=== PATIENT | male | born 1950 | race African-American/Black ===

== ENCOUNTER 2020-03-29 12:43 | Inpatient (IN) | payer MEDICARE, OTHER ==
[~2020-03-29] VITALS: Ht 180.3 cm; Wt 82.5 kg
[2020-03-29] MEDS ORDERED: Meclizine 25mg tab ORAL ONE (13:15)
--- NOTE | 2020-03-29 13:15 | NUR ---
ED Nurse Note: Patient walked in to ER due to dizziness x 45 min ago and nausea / vomiting since 15 min ago. Patient walked with steady gait, has even non labored breathing, AAO x4, VSS at this time, skin is warm to touch.
--- NOTE | 2020-03-29 13:49 | Diagnostic Imaging Report ---
Indications: Dizziness and vertigo Technique: Spiral acquisitions obtained through the brain. Angled axial and coronal 5 x 5 mm slices were reconstructed. Total dose length product 1098 mGycm. CTDI vol(s) 53 mGy. Dose reduction achieved using automated exposure control Comparison: None. Findings: No acute intracranial hemorrhage or edema. No mass effect nor midline shift. Normal hernandez-white differentiation. There is mild age-related enlargement of the ventricles and extra-axial CSF spaces, as well as minimal periventricular deep white matter low-attenuation, consistent with chronic microvascular ischemic change. Tiny old lacunar infarct is seen in the genu of the left internal capsule. The calvarium is intact. The mastoids are clear. Visualized orbits and sinuses are unremarkable. Impression: Chronic and age-related changes. 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
[2020-03-29] MEDS ORDERED: Albuterol ud Inhalation HHN ONE (14:00)
[2020-03-29] MEDS ORDERED: Ipratropium 0.02% Inh Soln 2.5ml UD HHN ONE (14:00)
[2020-03-29 14:22] LABS: BASOPHILS % (AUTO) 1.7 % (0.0-2.0); EOSINOPHILS % (AUTO) 5.6 % (0.0-3.0); HEMATOCRIT 43.5 % (42.0-52.0); HEMOGLOBIN 13.6 G/DL (14.2-18.0); LYMPHOCYTES % (AUTO) 39.9 % (20.0-45.0); MEAN CORPUSCULAR VOLUME 87 FL (80-99); MONOCYTES % (AUTO) 6.7 % (1.0-10.0); NEUTROPHILS % (AUTO) 46.1 % (45.0-75.0); PLATELET COUNT 212 K/UL (150-450); RED CELL DISTRIBUTION WIDTH 15.5 % (11.6-14.8); WHITE BLOOD COUNT 10.2 K/UL (4.8-10.8)
[2020-03-29] MEDS ORDERED: LORazepam Inj 2mg/ml 1ml IV ONE ×3 (14:30→16:30)
[2020-03-29 14:34] LABS: INR 1.7 (0.9-1.1)
[2020-03-29 14:39] LABS: ALANINE AMINOTRANSFERASE 21 U/L (12-78); ALBUMIN/GLOBULIN RATIO 1.2 (1.0-2.7); ALKALINE PHOSPHATASE 94 U/L (46-116); ASPARTATE AMINO TRANSFERASE 22 U/L (15-37); BILIRUBIN,TOTAL 0.4 MG/DL (0.2-1.0); BLOOD UREA NITROGEN 14 mg/dL (7-18); CALCIUM 8.9 MG/DL (8.5-10.1); CARBON DIOXIDE 28 MMOL/L (21-32); CHLORIDE 99 MMOL/L (98-107); CREATININE 1.4 MG/DL (0.55-1.30); POTASSIUM 4.4 MMOL/L (3.5-5.1); SODIUM 136 MMOL/L (136-145)
[2020-03-29 15:00] VITALS: BP 179/80
--- NOTE | 2020-03-29 15:02 | Emergency Room Report ---
History of Present Illness General Chief Complaint: Dizziness Source: Patient Present Illness HPI The patient states about an hour and 45 minutes prior to arrival here at the emergency department he was sitting in the couch when he suddenly developed lightheadedness, a spinning sensation and difficulty with balance. He denies headache. He has had nausea and did dry heaves but denies actual vomiting. He denies recent trauma. Denies fever or chills. He denies cough or congestion. Allergies: Coded Allergies: No Known Allergies (Unverified , 03/29/20) COVID-19 Screening Contact w/high risk pt: No Experienced COVID-19 symptoms?: No COVID-19 Testing performed DIRECTOR OF CASINO: No Patient History Past Medical History: see triage record, DM, HTN, FL, CAD Past Surgical History: CABG Social History: Reports: smoking; Denies: alcohol use, drug use Reviewed Nursing Documentation: PMH: Agreed; PSxH: Agreed Nursing Documentation-PMH Past Medical History: No History, Except For Hx Cardiac Problems: Yes Hx Hypertension: Yes Hx Diabetes: Yes Review of Systems All Other Systems: negative except mentioned in HPI Physical Exam Vital Signs Date Time Temp Pulse Resp B/P (MAP) Pulse Ox O2 Delivery O2 Flow Rate FiO2 03/29/20 12:55 98.2 61 18 179/80 (113) 97 Room Air Sp02 EP Interpretation: reviewed, normal General Appearance: no apparent distress, alert, GCS 15, non-toxic Head: normocephalic, atraumatic Eyes: bilateral eye normal inspection, bilateral eye PERRL ENT: hearing grossly normal, normal pharynx, no angioedema, normal voice Neck: full range of motion, supple/symm/no masses Respiratory: chest non-tender, no respiratory distress, no retraction, no accessory muscle use, speaking full sentences, wheezing, expiration Cardiovascular #1: regular rate, rhythm, no edema Gastrointestinal: normal bowel sounds, non tender, soft, non-distended, no guarding, no rebound Rectal: deferred Musculoskeletal: back normal, normal range of motion, non-tender Neurologic: alert, motor strength/tone normal, oriented x3, sensory intact, responsive, speech normal Psychiatric: judgement/insight normal, memory normal, mood/affect normal, no suicidal/homicidal ideation Skin: normal color Medical Decision Making Diagnostic Impression: Primary Impression: Vertigo Additional Impression: Bronchospasm with bronchitis, acute ER Course This patient presented with sudden onset vertigo. There were red flags in his history for central vertigo to include a sudden onset and ataxic gait. He does have nausea but has not had vomiting. Given my concern for central vertigo, I first obtained a CT head which showed no acute finding. I then obtained an MRI brain for concern of posterior circulation CVA. The MRI showed no evidence of posterior circulation CVA which is very reassuring for peripheral vertigo. However, patient also was found to have wheezing on expiration. Patient is not on any type of inhalers at home and has never been diagnosed with COPD. I suspect he has undiagnosed COPD. The patient's lung exam was significant and when I inquired if he felt short of breath, he then stated that he did. Patient is a current smoker and likely has undiagnosed COPD. The patient was given albuterol and Atrovent nebulizer treatments and oral steroids and admitted for further evaluation and treatment. This patient was evaluated in the context of the global COVID-19 pandemic, which necessitated consideration that the patient might be at risk for infection with the [id number] virus that causes COVID-19. Institutional protocols and algorithms that pertain to the evaluation of patients at risk for COVID-19 and the state of rapid change based on information released by multiple regulatory bodies including the CDC and federal and state organizations. These policies and algorithms were followed during the patient's care in the ED. Laboratory Tests Test 03/29/20 13:54 White Blood Count 10.2 K/UL (4.8-10.8) Red Blood Count 5.00 M/UL (4.70-6.10) Hemoglobin 13.6 G/DL (14.2-18.0) L Hematocrit 43.5 % (42.0-52.0) Mean Corpuscular Volume 87 FL (80-99) Mean Corpuscular Hemoglobin 27.1 PG (27.0-31.0) Mean Corpuscular Hemoglobin Concent 31.2 G/DL (32.0-36.0) L Red Cell Distribution Width 15.5 % (11.6-14.8) H Platelet Count 212 K/UL (150-450) Mean Platelet Volume 8.5 FL (6.5-10.1) Neutrophils (%) (Auto) 46.1 % (45.0-75.0) Lymphocytes (%) (Auto) 39.9 % (20.0-45.0) Monocytes (%) (Auto) 6.7 % (1.0-10.0) Eosinophils (%) (Auto) 5.6 % (0.0-3.0) H Basophils (%) (Auto) 1.7 % (0.0-2.0) Prothrombin Time 17.9 SEC (9.30-11.50) H Prothrombin Time INR 1.7 (0.9-1.1) H Activated Partial Thromboplast Time 57 SEC (23-33) H Sodium Level 136 MMOL/L (136-145) Potassium Level 4.4 MMOL/L (3.5-5.1) Chloride Level 99 MMOL/L (98-107) Carbon Dioxide Level 28 MMOL/L (21-32) Blood Urea Nitrogen 14 mg/dL (7-18) Creatinine 1.4 MG/DL (0.55-1.30) H Estimated Glomerular Filtration Rate > 60 mL/min (>60) Glucose Level 142 MG/DL (74-106) H Calcium Level 8.9 MG/DL (8.5-10.1) Total Bilirubin 0.4 MG/DL (0.2-1.0) Aspartate Amino Transferase (AST) 22 U/L (15-37) Alanine Aminotransferase (ALT) 21 U/L (12-78) Alkaline Phosphatase 94 U/L (46-116) Troponin I 0.000 ng/mL (0.000-0.056) Total Protein 7.3 G/DL (6.4-8.2) Albumin 4.0 G/DL (3.4-5.0) Globulin 3.3 g/dL Albumin/Globulin Ratio 1.2 (1.0-2.7) Lipase 165 U/L (73-393) EKG Diagnostic Results Rate: normal Rhythm: NSR ST Segments: no acute changes Rhythm Strip Diag. Results EP Interpretation: yes Rate: 60's Rhythm: NSR, no PVC's, no ectopy CT/MRI/US Diagnostic Results CT/MRI/US Diagnostic Results : Imaging Test Ordered: CT head, MRI brain Impression Impression: Chronic and age-related changes. 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 See official report in electronic medical record. Last Vital Signs Date Time Temp Pulse Resp B/P (MAP) Pulse Ox O2 Delivery O2 Flow Rate FiO2 03/29/20 12:55 98.2 61 18 179/80 (113) 97 Room Air Disposition: ADMITTED INPATIENT Condition: Serious Scripts Rivaroxaban (XARELTO*) 10 Mg Tablet 20 MG ORAL DAILY for 30 Days, #30 TAB Prov: Brian Abarca MD 03/30/20 Nateglinide (Starlix) 120 Mg Tablet 120 MG ORAL TIAC for 30 Days, #90 TAB Prov: Brian Abarca MD 03/30/20 Amlodipine Besylate (Norvasc) 10 Mg Tablet 10 MG ORAL DAILY for 30 Days, #30 TAB Prov: Brian Abarca MD 03/30/20 Referrals: NOT CHOSEN DAVID/,REFERRING (PCP) Luzmaria Kimble DO Mar 29, 2020 15:02
--- NOTE | 2020-03-29 15:03 | NUR ---
ED Nurse Note: Per ARLEY, she is requesting to give patient Ativan so he can go to radiology.
--- NOTE | 2020-03-29 15:35 | NUR ---
ED Nurse Note: RT at bed side
--- NOTE | 2020-03-29 15:52 | Diagnostic Imaging Report ---
Indication: Shortness of breath Technique: One view of the chest Comparison: None Findings: The heart is upper limits normal in size. There is evidence of prior CABG. The lungs and pleural spaces are clear. Impression: No acute process
[2020-03-29 16:56] LABS: APPEARANCE,URINE CLEAR; BILIRUBIN, URINE NEGATIVE (NEGATIVE); COLOR,URINE PALE YELLOW; GLUCOSE, URINE (UA) NEGATIVE (NEGATIVE); KETONES,URINE NEGATIVE (NEGATIVE); LEUKOCYTE ESTERASE ,URINE NEGATIVE (NEGATIVE); NITRITE,URINE NEGATIVE (NEGATIVE); PH,URINE 7 (4.5-8.0); PROTEIN,URINE 2+ (NEGATIVE); UROBILINOGEN,URINE NORMAL MG/DL (0.0-1.0)
--- NOTE | 2020-03-29 17:10 | NUR ---
ED Nurse Note: Patient wa taken to MRI via [facility]
--- NOTE | 2020-03-29 17:45 | NUR ---
ED Nurse Note: Patient is back, NAD noted
[2020-03-29] MEDS ORDERED: METFORMIN HCL500 M1 ORAL (18:07)
[2020-03-29] MEDS ORDERED: FUROSEMIDE20 M1 ORAL (18:07)
--- NOTE | 2020-03-29 18:18 | Diagnostic Imaging Report ---
EXAM: MR Head Without Intravenous Contrast CLINICAL HISTORY: Dizziness. TECHNIQUE: Magnetic resonance images of the head/brain without intravenous contrast in multiple planes. COMPARISON: 03/29/2020. FINDINGS: Brain: Evaluation of axial diffusion-weighted sequences reveals no foci of increased signal to suggest acute cerebrovascular event. Small vessel disease of aging. No abnormal extra-axial collection. No hemorrhage. Midline shift: No midline shift or mass-effect. Midline anatomy is unremarkable. Ventricles: There is prominence of the ventricular system, cortical sulci, basilar cisterns, compatible with age related atrophy. Bones/joints: 7th and 8th cranial nerves are unremarkable. Sinuses: Unremarkable as visualized. No acute sinusitis. Mastoid air cells: Unremarkable as visualized. No mastoid effusion. Orbits: Unremarkable as visualized. Sella: So-called empty sella. IMPRESSION: 1. Age-related atrophy and small vessel disease of aging. 2. No acute intracranial pathology. 3. Diffusion-weighted sequences are unremarkable. 4. 7th and 8th cranial nerves are unremarkable.
--- NOTE | 2020-03-29 19:11 | NUR ---
HAND-OFF: Report given to BARRY Napier.
--- NOTE | 2020-03-29 19:18 | History & Physical ---
History and Physical History & Physicial Brian Abarca MD Mar 29, 2020 19:18
[2020-03-29 19:37] VITALS: BP 145/90
--- NOTE | 2020-03-29 19:40 | NUR ---
NURSE NOTES: Receive a report from BARRY Stephenson from ED.
[2020-03-29 19:43] VITALS: BP 158/84
--- NOTE | 2020-03-29 19:47 | NUR ---
ED Nurse Note: REPORT GIVEN TO MACI BEASLEY RN. ENDORSED PT. CARE
--- NOTE | 2020-03-29 19:55 | NUR ---
NURSE NOTES: Pt admitted from ER via wheelchair. Awake and alert. No acute distress noted. No dizziness/ no nausea noted. Denies any pain. Ambulatory. Skin intact. No wheezing noted at this time. Done checking belonging list. Given room orientation. Call light within reach. Will continue to monitor.
[2020-03-29 20:00] VITALS: BP 149/87
[2020-03-29] MEDS ORDERED: Albuterol/Ipratropium 3ml neb HHN PRN (20:15)
[2020-03-29] MEDS ORDERED: Promethazine/Codeine 5ml UD ORAL PRN (20:15)
[2020-03-29] MEDS ORDERED: Nitroglycerin Subl 0.4mg tab SL PRN (20:15)
--- NOTE | 2020-03-29 20:30 | NUR ---
NURSE NOTES: Pt did not bring home medication and does not remember all medication name- especially anti-HTN medication. Got advice from pharmacy to follow up with pt's home pharmacy.
[2020-03-29] MEDS ORDERED: Zolpidem 5mg tab ORAL PRN (20:45)
--- NOTE | 2020-03-29 20:45 | NUR ---
NURSE NOTES: Pt's home pharmacy got closed at this time and could not get information. Made aware Dr. Abarca for pt's home medication. Receive order for home medication-resume home medication and continue the rest of home medication after detailed information from pt's pharmacy. Will continue to follow up. Admission orders got received. Will continue to monitor.
[2020-03-29] MEDS ORDERED: Heparin 5000 units/ml inj SUBQ SCH (21:00)
[2020-03-29] MEDS: Theophylline ER 100mg ORAL SCH (21:06)
[2020-03-29] MEDS: NovoLOG Insulin Flexpen SUBQ SCH (21:07)
--- NOTE | 2020-03-29 22:00 | NUR ---
NURSE NOTES: Seen by Dr. Abarca. Confirm sleeping pills for insomnia with him. Will continue to monitor.
[2020-03-29] MEDS: Solu-MEDROL 125mg Inj IVPB SCH (23:40)
[2020-03-30] VITALS: BP 162/83
[2020-03-30 04:30] VITALS: BP 158/87
--- NOTE | 2020-03-30 05:00 | NUR ---
NURSE NOTES: No SOB but noted mild wheezing. Spo2: 93% in RA. Call RT for prn breathing treatment and I/S instruction. Pt is aware to collect sputum. Will continue to monitor.
[2020-03-30] MEDS: Solu-MEDROL 125mg Inj IVPB SCH ×2 (06:12→11:36)
[2020-03-30] MEDS: NovoLOG Insulin Flexpen SUBQ SCH ×2 (06:13→11:39)
[2020-03-30 06:38] LABS: BASOPHILS % (AUTO) 0.6 % (0.0-2.0); EOSINOPHILS % (AUTO) 0.1 % (0.0-3.0); HEMATOCRIT 40.7 % (42.0-52.0); HEMOGLOBIN 13.3 G/DL (14.2-18.0); LYMPHOCYTES % (AUTO) 21.9 % (20.0-45.0); MEAN CORPUSCULAR VOLUME 84 FL (80-99); MONOCYTES % (AUTO) 1.4 % (1.0-10.0); PLATELET COUNT 216 K/UL (150-450); RED BLOOD COUNT 4.82 M/UL (4.70-6.10); RED CELL DISTRIBUTION WIDTH 15.4 % (11.6-14.8)
--- NOTE | 2020-03-30 06:41 | NUR ---
NURSE HAND-OFF: Important Events on Shift: admission/ Breathing treatment x1 Patient Status: stable Diet: CCHO Medium Pending Orders: follow-up [facility] pharmacy for home medication:[phone] Pending Results/Labs:CBC, CMP, Sputum C/S Pending MD notification:[] Latest Vital Signs: Temperature 98.2 , Pulse 68 , B/P 158 /87 , Respiratory Rate 18 , O2 SAT 93 , Room Air, O2 Flow Rate . Vital Sign Comment: [] Latest Alvarez Fall Score: 35 Fall Risk: Medium Risk Safety Measures: Call light Within Reach, Bed Alarm , Side Rails Side Rails x2, Bed position Low and Locked. Fall Precautions: Door Sign Patient Fall Education
[2020-03-30 06:50] LABS: ALBUMIN 3.3 G/DL (3.4-5.0); ALBUMIN/GLOBULIN RATIO 0.9 (1.0-2.7); BILIRUBIN,TOTAL 0.4 MG/DL (0.2-1.0); CALCIUM 8.9 MG/DL (8.5-10.1); CREATININE 1.5 MG/DL (0.55-1.30); POTASSIUM 4.6 MMOL/L (3.5-5.1)
--- NOTE | 2020-03-30 07:20 | NUR ---
HAND-OFF: Report given to BARRY Hemphill. Round is done.
--- NOTE | 2020-03-30 07:25 | NUR ---
NURSE NOTES: Patient is sitting up at the edge of the bed eating breakfast. Stable. Denies pain or SOB. Plan of care discussed with patient. Message left for pharmacy regarding home medications. Patient instructed to use call light for assistance, verbalized understanding. All safety measures provided. All needs met at this time. Bed is in locked and lowest position and call light within reach. Will continue to monitor.
[2020-03-30 08:00] VITALS: BP 157/77
[2020-03-30] MEDS: Theophylline ER 100mg ORAL SCH (08:27)
[2020-03-30] MEDS ORDERED: Xarelto 10mg tab ORAL SCH (09:00)
[2020-03-30] MEDS ORDERED: metFORMIN 500mg tab ORAL SCH (09:00)
[2020-03-30 11:56] VITALS: BP 168/92
[2020-03-30] MEDS ORDERED: Solu-MEDROL 125mg Inj IVPB SCH (12:29)
--- NOTE | 2020-03-30 12:37 | Consultation ---
History of Present Illness General Date patient seen: Mar 30, 2020 Chief Complaint: Dizziness Present Illness HPI 70 year old male with hx of CABG, DM, HTN, CO, CAD, CHF on lasix, presented to ER with CC of lightheadedness, a spinning sensation and difficulty with balance. He denies headache. He has had nausea and did dry heaves but denies actual vomiting. He was complaining of dyspnea and cough as well. He is a current smoker. He is admitted for further management. Allergies: Coded Allergies: No Known Allergies (Unverified , 03/29/20) Medication History Scheduled Furosemide* (Lasix*), Unknown Dose ORAL DAILY, (Reported) Metformin Hcl* (Metformin Hcl*), Unknown Dose ORAL ONCE, (Reported) Patient History Healthcare decision maker Resuscitation status Advanced Directive on File Past Medical/Surgical History Past Medical/Surgical History: (1) COPD (chronic obstructive pulmonary disease) (2) History of hypertension (3) History of diabetes mellitus (4) CHF (congestive heart failure) (5) Hx of CABG (6) S/P angioplasty with stent Review of Systems Constitutional: Reports: malaise, weakness Respiratory: Reports: cough All Other Systems: negative except mentioned in HPI Physical Exam General Appearance: WD/WN, no apparent distress Lines, tubes and drains: peripheral HEENT: normocephalic, atraumatic Neck: non-tender, normal alignment Respiratory/Chest: chest wall non-tender, lungs clear Breasts: no masses Cardiovascular/Chest: normal peripheral pulses Abdomen: normal bowel sounds, non tender Genitourinary/Rectal: normal genital exam Extremities: normal range of motion Skin Exam: normal pigmentation Neurologic: conference specialist II-XII grossly normal Last 24 Hour Vital Signs Date Time Temp Pulse Resp B/P (MAP) Pulse Ox O2 Delivery O2 Flow Rate FiO2 03/30/20 11:56 97.8 76 20 168/92 (117) 95 03/30/20 08:54 Room Air 03/30/20 08:00 97.7 81 20 157/77 (103) 93 03/30/20 05:24 75 18 97 Room Air 21 68 18 93 03/30/20 05:23 68 18 93 Room Air 21 03/30/20 04:30 98.2 73 20 158/87 (110) 93 03/30/20 00:00 98.2 67 20 162/83 (109) 93 03/29/20 23:41 162/83 03/29/20 23:27 63 16 92 21 03/29/20 23:27 68 18 92 21 03/29/20 21:00 Room Air 03/29/20 20:30 Room Air 03/29/20 20:00 98.2 69 20 149/87 (107) 95 03/29/20 19:43 98.0 78 20 158/84 94 Room Air 03/29/20 19:43 98.0 78 20 158/84 94 Room Air 03/29/20 17:03 67 20 155/95 95 03/29/20 16:33 67 20 165/95 95 03/29/20 15:33 88 22 178/88 95 03/29/20 15:33 88 22 178/88 95 03/29/20 15:32 88 22 178/88 95 03/29/20 15:32 65 24 100 Room Air 21 67 29 94 03/29/20 15:00 61 18 Room Air 03/29/20 15:00 98.2 67 18 179/80 97 Room Air 03/29/20 12:55 98.2 61 18 179/80 (113) 97 Room Air Intake and Output 03/29/20 03/30/20 19:00 07:00 Intake Total 150 ml Balance 150 ml Intake Oral 150 ml # Voids 1 2 Laboratory Tests Test 03/29/20 13:54 03/29/20 15:38 03/29/20 21:00 03/30/20 04:00 White Blood Count 10.2 K/UL (4.8-10.8) Red Blood Count 5.00 M/UL (4.70-6.10) Hemoglobin 13.6 G/DL (14.2-18.0) L Hematocrit 43.5 % (42.0-52.0) Mean Corpuscular Volume 87 FL (80-99) Mean Corpuscular Hemoglobin 27.1 PG (27.0-31.0) Mean Corpuscular Hemoglobin Concent 31.2 G/DL (32.0-36.0) L Red Cell Distribution Width 15.5 % (11.6-14.8) H Platelet Count 212 K/UL (150-450) Mean Platelet Volume 8.5 FL (6.5-10.1) Neutrophils (%) (Auto) 46.1 % (45.0-75.0) Lymphocytes (%) (Auto) 39.9 % (20.0-45.0) Monocytes (%) (Auto) 6.7 % (1.0-10.0) Eosinophils (%) (Auto) 5.6 % (0.0-3.0) H Basophils (%) (Auto) 1.7 % (0.0-2.0) Prothrombin Time 17.9 SEC (9.30-11.50) H Prothromb Time International Ratio 1.7 (0.9-1.1) H Activated Partial Thromboplast Time 57 SEC (23-33) H Sodium Level 136 MMOL/L (136-145) 136 MMOL/L (136-145) Potassium Level 4.4 MMOL/L (3.5-5.1) 4.6 MMOL/L (3.5-5.1) Chloride Level 99 MMOL/L (98-107) 100 MMOL/L (98-107) Carbon Dioxide Level 28 MMOL/L (21-32) 28 MMOL/L (21-32) Blood Urea Nitrogen 14 mg/dL (7-18) 16 mg/dL (7-18) Creatinine 1.4 MG/DL (0.55-1.30) H 1.5 MG/DL (0.55-1.30) H Estimat Glomerular Filtration Rate > 60 mL/min (>60) 56.2 mL/min (>60) Glucose Level 142 MG/DL (74-106) H 236 MG/DL (74-106) H Calcium Level 8.9 MG/DL (8.5-10.1) 8.9 MG/DL (8.5-10.1) Total Bilirubin 0.4 MG/DL (0.2-1.0) 0.4 MG/DL (0.2-1.0) Aspartate Amino Transf (AST/SGOT) 22 U/L (15-37) 16 U/L (15-37) Alanine Aminotransferase (ALT/SGPT) 21 U/L (12-78) 17 U/L (12-78) Alkaline Phosphatase 94 U/L (46-116) 88 U/L (46-116) Troponin I 0.000 ng/mL (0.000-0.056) Total Protein 7.3 G/DL (6.4-8.2) 7.0 G/DL (6.4-8.2) Albumin 4.0 G/DL (3.4-5.0) 3.3 G/DL (3.4-5.0) L Globulin 3.3 g/dL 3.7 g/dL Albumin/Globulin Ratio 1.2 (1.0-2.7) 0.9 (1.0-2.7) L Lipase 165 U/L (73-393) Serum Alcohol < 3 mg/dL Urine Color Pale yellow Urine Appearance Clear Urine pH 7 (4.5-8.0) Urine Specific [place] 1.005 (1.005-1.035) Urine Protein 2+ (NEGATIVE) H Urine Glucose (UA) Negative (NEGATIVE) Urine Ketones Negative (NEGATIVE) Urine Blood 1+ (NEGATIVE) H Urine Nitrite Negative (NEGATIVE) Urine Bilirubin Negative (NEGATIVE) Urine Urobilinogen Normal MG/DL (0.0-1.0) Urine Leukocyte Esterase Negative (NEGATIVE) Urine RBC 5-10 /HPF (0 - 0) H Urine WBC 0 /HPF (0 - 0) Urine Squamous Epithelial Cells None /LPF (NONE/OCC) Urine Bacteria Few /HPF (NONE) POC Whole Blood Glucose 237 MG/DL (74-106) H Anion Gap 8 mmol/L (5-15) Test 03/30/20 04:59 03/30/20 05:00 POC Whole Blood Glucose 241 MG/DL (74-106) H White Blood Count 10.0 K/UL (4.8-10.8) Red Blood Count 4.82 M/UL (4.70-6.10) Hemoglobin 13.3 G/DL (14.2-18.0) L Hematocrit 40.7 % (42.0-52.0) L Mean Corpuscular Volume 84 FL (80-99) Mean Corpuscular Hemoglobin 27.6 PG (27.0-31.0) Mean Corpuscular Hemoglobin Concent 32.7 G/DL (32.0-36.0) Red Cell Distribution Width 15.4 % (11.6-14.8) H Platelet Count 216 K/UL (150-450) Mean Platelet Volume 8.7 FL (6.5-10.1) Neutrophils (%) (Auto) 76.0 % (45.0-75.0) H Lymphocytes (%) (Auto) 21.9 % (20.0-45.0) Monocytes (%) (Auto) 1.4 % (1.0-10.0) Eosinophils (%) (Auto) 0.1 % (0.0-3.0) Basophils (%) (Auto) 0.6 % (0.0-2.0) Microbiology Date/Time Source Procedure Growth Status 03/29/20 14:24 Nasopharynx SARS-CoV-2 RdRp Gene Assay - Final Complete Height (Feet): 5 Height (Inches): 11.00 Weight (Pounds): 180 Medications Current Medications Medications (Trade) Dose Ordered Sig/Nuria Route PRN Reason Start Time Stop Time Status Last Admin Dose Admin Acetaminophen (Tylenol) 650 mg Q4H PRN ORAL fever 03/29/20 20:15 04/28/20 20:14 Albuterol/ Ipratropium (Albuterol/ Ipratropium) 3 ml EVERY 4 HOURS PRN HHN dyspnea 03/29/20 20:15 04/03/20 20:14 03/30/20 05:17 Clonidine HCl (Catapres Tab) 0.1 mg EVERY 4 HOURS PRN ORAL sbp more than 160 03/29/20 20:15 06/27/20 20:14 03/29/20 23:41 Dextrose (Dextrose 50%) 25 ml Q30M PRN IV Hypoglycemia 03/29/20 20:15 06/27/20 20:14 Dextrose (Dextrose 50%) 50 ml Q30MIN PRN IV Hypoglycemia 03/29/20 20:15 06/27/20 20:14 Furosemide (Lasix) 20 mg DAILY ORAL 03/30/20 09:00 04/29/20 08:59 03/30/20 08:27 Insulin Aspart (NovoLOG) BEFORE MEALS AND HS SUBQ 03/29/20 21:00 06/27/20 20:59 03/30/20 11:39 Metformin HCl (Glucophage) 500 mg DAILY ORAL 03/30/20 09:00 04/29/20 08:59 03/30/20 08:27 Methylprednisolone Sodium Succinate (Solu-MEDROL) 60 mg EVERY 6 HOURS IVPB 03/30/20 00:00 06/28/20 00:00 03/30/20 11:36 Nitroglycerin (Ntg) 0.4 mg Q5M X 3 DOSES PRN SL Prn Chest Pain 03/29/20 20:15 04/28/20 20:14 Ondansetron HCl (Zofran) 4 mg Q6H PRN IVP Nausea & Vomiting 03/29/20 20:15 04/28/20 20:14 Promethazine HCl/ Codeine (Phenergan with Codeine) 5 ml EVERY 6 HOURS PRN ORAL cough 03/29/20 20:15 04/28/20 20:14 Rivaroxaban (Xarelto) 20 mg DAILY ORAL 03/30/20 09:00 06/28/20 08:59 03/30/20 08:27 Theophylline (Bijan-Dur) 100 mg EVERY 12 HOURS ORAL 03/29/20 21:00 06/27/20 20:59 03/30/20 08:27 Zolpidem Tartrate (Ambien) 10 mg HSPRN PRN ORAL Insomnia 03/29/20 20:45 04/05/20 20:44 03/29/20 22:33 Assessment/Plan Problem List: (1) Bronchospasm with bronchitis, acute ICD Codes: J20.9 - Acute bronchitis, unspecified SNOMED: 43742874 (2) Vertigo ICD Codes: R42 - Dizziness and giddiness SNOMED: 949678734 (3) COPD (chronic obstructive pulmonary disease) ICD Codes: J44.9 - Chronic obstructive pulmonary disease, unspecified SNOMED: 49672914 (4) History of diabetes mellitus ICD Codes: Z86.39 - Personal history of other endocrine, nutritional and metabolic disease SNOMED: 860710024 (5) History of hypertension ICD Codes: Z86.79 - Personal history of other diseases of the circulatory system SNOMED: 468253815 (6) Hx of CABG ICD Codes: Z95.1 - Presence of aortocoronary bypass graft SNOMED: 012966228, 495719559 (7) S/P angioplasty with stent ICD Codes: Z95.820 - Peripheral vascular angioplasty status with implants and grafts SNOMED: 261522451, 637876567 Assessment/Plan: respiratory treatment titrate fio2 to sat of 92% MRI of brain reviewed, lightheadedness sliding scale diabetic diet echocardiogram hold metformin b/o renal insufficiency Jony Leger MD Mar 30, 2020 12:37
[2020-03-30] MEDS ORDERED: Albuterol/Ipratropium 3ml neb HHN PRN (12:45)
[2020-03-30 12:50] LABS: CREATINE KINASE 137 U/L (26-308)
--- NOTE | 2020-03-30 13:37 | Consultation ---
Consult Note Consult Note Asked to evaluate the patient at the request of Dr. Abarca for elevated serum creatinine The patient states about an hour and 45 minutes prior to arrival here at the emergency department he was sitting in the couch when he suddenly developed lightheadedness, a spinning sensation and difficulty with balance. He denies headache. He has had nausea and did dry heaves but denies actual vomiting. He denies recent trauma. Denies fever or chills. He denies cough or congestion. Allergies: No Known Allergies (Unverified , 03/29/20) COVID-19 Screening Contact w/high risk pt: No Experienced COVID-19 symptoms?: No COVID-19 Testing performed RESIDENTIAL LEASING AGENT: No Past Medical History: see triage record, DM, HTN, [place], CAD Past Surgical History: CABG Past Medical History: No History, Except For Hx Cardiac Problems: Yes Hx Hypertension: Yes Hx Diabetes: Yes PHYSICAL EXAMINATION: VITAL SIGNS: Temperature 98.2, pulse of 61, respirations 18, blood pressure 179/80. GENERAL: Patient is awake, responsive, in no acute distress. HEAD AND NECK: Pupils are equal and reactive to light. Extraocular movements intact. Neck was supple. No JVD. LUNGS: Good air entry. No wheezing or rales. HEART: S1, S2. Regular rhythm. No murmurs or gallops. ABDOMEN: Soft, nondistended, nontender. Positive bowel sounds. EXTREMITIES: No cyanosis, clubbing, or edema. NEUROLOGIC: Cranial nerves II through XII grossly intact. Motor is 5/5 in all extremities. Gait was not assessed due to patient's status. RECTAL: Refused and deferred. GENITOURINARY: Refused and deferred. PSYCHIATRIC: Mood and affect is intact. LABORATORY AND DIAGNOSTIC DATA: Laboratory on admission WBC of 10.2, hemoglobin 13, hematocrit 42, platelets 211. Sodium 136, potassium 4.4, chloride 99, bicarbonate 28, BUN 14, creatinine 1.4, GFR greater than 60, glucose is 142. Troponin 0.00. Lipase is 165. PT of 17, INR 1.7, PTT of 57. Urine drug screen positive for marijuana. Alcohol negative. Urinalysis, +2 protein, +1 blood, 5 to 10 rbc's, negative leukocytes. COVID-19 test is negative. Chest x-ray, no acute process. CT of the head shows chronic age-related changes. Negative for acute intracranial bleed or mass effect. 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 MRI of the brain showed age-related atrophy of the small vessel disease, age-related. No acute intracranial abnormality. Diffuse weighted sequence are unremarkable. Cranial nerves VII and VIII are unremarkable. Assessment/Plan Elevated serum creatinine most likely as a result of combination of diabetes and hypertension. Patient has 2+ proteinuria Partly also may be due to her home medication which includes Metformin and Lasix Mild anemia Diabetes mellitus Hypertension CAD Pulmonary toilet BP medication adjustment Hold Lasix and Metformin Check 2D echocardiogram Continue to monitor renal parameters Avoid nephrotoxic's Starlix and diabetic diet Miguel Gillis MD Mar 30, 2020 13:37
[2020-03-30 14:26] VITALS: BP 168/92
[2020-03-30] MEDS ORDERED: XARELTO10 MG ORAL (15:04)
[2020-03-30] MEDS ORDERED: STARLIX120 MG ORAL (15:04)
[2020-03-30] MEDS ORDERED: NORVASC10 MG ORAL (15:04)
--- NOTE | 2020-03-30 15:05 | Discharge Summary ---
Discharge Summary Hospital Course Date of Admission Mar 29, 2020 at 15:45 Date of Discharge Admitting Diagnosis COPD exacerbation/new diagnosis HPI Spike Mason is a 70 year old male who was admitted on Mar 29, 2020 at 15:45 for Chronic Obstructive Pulmonary Disease Exacerbation Hospital Course Job: Discharge Discharge Vital Signs Last Vital Signs Date Time Temp Pulse Resp B/P (MAP) Pulse Ox O2 Delivery O2 Flow Rate FiO2 03/30/20 14:26 76 168/92 03/30/20 11:56 97.8 20 95 03/30/20 08:54 Room Air 03/30/20 05:24 21 Discharge Disposition Patient was discharged to Brian Abarca MD Mar 30, 2020 15:05
--- NOTE | 2020-03-30 15:46 | NUR ---
NURSE NOTES: Patient discharged home as ordered. Stable. 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 Patient has all belongings. Patient's sister will drive patient home. No IV access. Skin is c/d/i. Patient assisted outside by staff without incident.
--- NOTE | 2020-03-30 22:15 | History and Physical Report ---
DATE OF ADMISSION: 03/29/2020 CHIEF COMPLAINT: Dizziness. HISTORY OF PRESENT ILLNESS: This is a 70-year-old very delightful gentleman with past medical history significant for coronary artery disease with prior history of CABG, history of myocardial infarction, status post PTCA with stent, hypertension, dyslipidemia, diabetes type 2 who presented to the emergency department complaining about lightheadedness, room spinning, difficulty with balance. Patient denies any headache. Denies any fall or head trauma. Complained about nausea, but no vomiting. Had an episode of dry heaving. He denies any loss of consciousness. Denies any double vision. Denies any bowel or urine incontinence. Has mild shortness of breath associated with cough. He currently smokes and denies any recent COVID exposure. Shortly after initial evaluation in the emergency department, patient was admitted to the hospital with dizziness, lightheadedness, possible due to dehydration and shortness of breath possible due to bronchospasm, bronchitis. PAST MEDICAL HISTORY/PAST SURGICAL HISTORY: As above, history of COPD, chronic smoker, hypertension, diabetes type 2, congestive heart failure, coronary artery disease, status post myocardial infarction with stent placement, angioplasty, chronic kidney disease. MEDICATIONS: At home please refer to medication reconciliation. ALLERGIES: No known drug allergies. SOCIAL HISTORY: Patient currently smokes. Denies any alcohol or substance abuse. He is retired. FAMILY HISTORY: Noncontributory. REVIEW OF SYSTEMS: Mostly as above. Denies any dysuria, frequency, or hematuria. Denies any hemoptysis or hematochezia. Complained about malaise, fatigue, cough. Denies any loss of consciousness. Denies any suicidal or homicidal ideation. Denies any double vision. PHYSICAL EXAMINATION: VITAL SIGNS: Temperature 98.2, pulse of 61, respirations 18, blood pressure 179/80. GENERAL: Patient is awake, responsive, in no acute distress. HEAD AND NECK: Pupils are equal and reactive to light. Extraocular movements intact. Neck was supple. No JVD. LUNGS: Good air entry. No wheezing or rales. HEART: S1, S2. Regular rhythm. No murmurs or gallops. ABDOMEN: Soft, nondistended, nontender. Positive bowel sounds. EXTREMITIES: No cyanosis, clubbing, or edema. NEUROLOGIC: Cranial nerves II through XII grossly intact. Motor is 5/5 in all extremities. Gait was not assessed due to patient's status. RECTAL: Refused and deferred. GENITOURINARY: Refused and deferred. PSYCHIATRIC: Mood and affect is intact. LABORATORY AND DIAGNOSTIC DATA: Laboratory on admission WBC of 10.2, hemoglobin 13, hematocrit 42, platelets 211. Sodium 136, potassium 4.4, chloride 99, bicarbonate 28, BUN 14, creatinine 1.4, GFR greater than 60, glucose is 142. Troponin 0.00. Lipase is 165. PT of 17, INR 1.7, PTT of 57. Urine drug screen positive for marijuana. Alcohol negative. Urinalysis, +2 protein, +1 blood, 5 to 10 rbc's, negative leukocytes. COVID-19 test is negative. Chest x-ray, no acute process. CT of the head shows chronic age-related changes. Negative for acute intracranial bleed or mass effect. 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 MRI of the brain showed age-related atrophy of the small vessel disease, age-related. No acute intracranial abnormality. Diffuse weighted sequence are unremarkable. Cranial nerves VII and VIII are unremarkable. ASSESSMENT: 1. Dizziness and lightheadedness, possibly due to vertigo. 2. Uncontrolled hypertension. 3. Cough and shortness of breath, possible due to acute COPD exacerbation with bronchospasm. 4. History of coronary artery disease with prior history of AR, status post CABG as well as PTCA with stent placement. 5. Diabetes type 2. 6. Dyslipidemia. 7. Chronic kidney disease. PLAN: We will admit the patient to medical floor. We will follow up laboratory. Resume home medications. Try to obtain the list of medications from home. Monitor blood glucose level. Follow up with Dr. Leger from Pulmonary Critical Care and Dr. Gillis from Nephrology. Code status is Full Code. DVT prophylaxis, heparin subcutaneous. Brian Abarca M.D. DR: NIKOLE JOB#: [id number] CC:
--- NOTE | 2020-03-30 23:30 | Discharge Summary ---
DATE OF ADMISSION: 03/29/2020 DATE OF DISCHARGE: 03/30/2020 CHIEF COMPLAINT: Dizziness, lightheadedness. 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 Shortly after initial evaluation, the patient was admitted to the hospital with vertigo. Throughout the hospital course, the patient was consulted with Dr. Leger, Pulmonary Critical Care, and Dr. Gillis from Nephrology. The patient's status gradually improved and he was able to ambulate without any difficulty. Denies any headache or loss of consciousness, and subsequently the patient was discharged home today to be followed up in my office next week. I advised the patient to bring all his home medications in order for me to review them. Note the patient's blood pressure has been elevated. We will try to adjust the blood pressure medication open arrival to the office after reviewing his home medication. FINAL DIAGNOSES: 1. Dizziness and lightheadedness, most likely secondary to vertigo. 2. 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 3. History of COPD with chronic smoker. 4. Diabetes type 2. 5. Hypertension. 6. Chronic kidney disease. 7. Bronchospasm with bronchitis. MEDICATIONS ON DISCHARGE: Continue discharge medication list. ACTIVITY: As tolerated. DIET: A 2000 ADA cardiac diet. The patient was advised to follow up in my office within 1 week and bring all his home medications in order for us to review it and prescribe medication for the better blood pressure control. Brian Abarca M.D. DR: ERIC JOB#: [id number] CC:
== END 2020-03-30 15:36 | disposition home or self-care (01) | DRG 191 ==
LOC: EMR 13:25 → 3E 15:45 → EDBEDREQ 18:49
DX: J44.0 Chronic obstructive pulmonary disease with (acute) lower respiratory infection (principal); I13.0 Hypertensive heart and chronic kidney disease with heart failure and stage 1 through stage 4 chronic kidney disease, or unspecified chronic kidney disease; R42 Dizziness and giddiness; J44.1 Chronic obstructive pulmonary disease with (acute) exacerbation; J20.9 Acute bronchitis, unspecified; Z86.73 Personal history of transient ischemic attack (TIA), and cerebral infarction without residual deficits; J44.9 Chronic obstructive pulmonary disease, unspecified; E11.22 Type 2 diabetes mellitus with diabetic chronic kidney disease; N18.9 Chronic kidney disease, unspecified; I25.10 Atherosclerotic heart disease of native coronary artery without angina pectoris; Z95.5 Presence of coronary angioplasty implant and graft; Z95.1 Presence of aortocoronary bypass graft; I25.2 Old myocardial infarction; I50.9 Heart failure, unspecified; F17.200 Nicotine dependence, unspecified, uncomplicated; Z79.84 Long term (current) use of oral hypoglycemic drugs; E78.5 Hyperlipidemia, unspecified
CPT/HCPCS: 36415; 70450; 70551; 71045; 80053; 80307; 81003; 82043; 82550; 82962; 83690; 84484; 84550; 85025; 85610; 85730; 87070; 87205; 93005; 93306; 94640; 94664; 96361; 96374; 96376; 99285; G0480; J1815; J7030; J7620; U0002